=== PATIENT | female | born 1935 | race Caucasian/White ===

== ENCOUNTER 2019-02-09 16:12 | Inpatient (IN) | payer MEDICARE, OTHER ==
[~2019-02-09] VITALS: Ht 149.9 cm; Wt 56.7 kg
--- NOTE | 2019-02-09 16:45 | NUR ---
BIB SON C/O SOB STARTED 3:30AM, 02 SAT 94% ON RA. DX WITH PNEUMONIA LAST MONTH PER PT. PT AAOX3, VSS. DENIES CP, DIZZINESS, N/V, WEAKNESS @ THIS TIME. PT SEEN & EVAL'D BY DR. MARKS. PLACED ON SOFTWARE MANAGER, NSR & WILL CONT TO MONITOR.
[2019-02-09 16:56] LABS: BASOPHILS # (AUTO) 0.1 /CMM (0.0-0.2); BASOPHILS % (AUTO) 0.9 % (0.0-2.0); EOSINOPHILS % (AUTO) 5.3 % (0.0-6.0); HEMATOCRIT 34 % (33-45); HEMOGLOBIN 11.6 g/dL (11.5-14.8); LYMPHOCYTES # (AUTO) 2.2 /CMM (0.8-4.8); LYMPHOCYTES % (AUTO) 26.6 % (20.0-44.0); MEAN CORPUSCULAR HGB CONC 35 g/dl (31.0-36.0); MEAN CORPUSCULAR VOLUME 92 fL (82-100); MONOCYTES % (AUTO) 11.8 % (2.0-12.0); NEUTROPHILS # (AUTO) 4.5 /CMM (1.8-8.9); NEUTROPHILS % (AUTO) 55.4 % (43.0-81.0); PLATELET COUNT (AUTO) 152 /CMM (150-450); RED BLOOD CELL COUNT(AUTO) 3.65 MIL/uL (4.0-5.2); WHITE BLOOD COUNT (AUTO) 8.2 K/uL (4.3-11.0)
[2019-02-09 17:15] LABS: CALCIUM, SERUM 9.8 mg/dL (8.5-10.1); CARBON DIOXIDE 30 mmol/L (21-32); CHLORIDE 102 mmol/L (98-107); CREATININE 1.9 mg/dL (0.6-1.3); GLUCOSE 101 mg/dL (74-106); POTASSIUM 3.3 mmol/L (3.5-5.1); SODIUM SERUM 140 mmol/L (136-145); UREA NITROGEN, BLOOD 41 mg/dL (7-18)
[2019-02-09 17:28] LABS: ALANINE AMINOTRANSFERASE 15 U/L (12-78); ALBUMIN 3.7 g/dL (3.4-5.0); ALKALINE PHOSPHATASE 72 U/L (46-116); ASPARTATE AMINOTRANSFERASE 20 U/L (15-37); B-TYPE NATRIURETIC PEPTIDE 3480 PG/ML (0-125); BILIRUBIN,DIRECT 0.1 mg/dL (0.0-0.2); BILIRUBIN,TOTAL 0.4 mg/dL (0.2-1.0); TOTAL PROTEIN, SERUM 8.2 g/dL (6.4-8.2)
--- NOTE | 2019-02-09 18:15 | NUR ---
MOVE SHEET SUBMITTED TO ADMITTING AND CALLED FOR TELE BED
[2019-02-09] MEDS ORDERED: FUROSEMIDE 40 MG/4 ML VIAL ONE (18:27)
[2019-02-09] MEDS ORDERED: POTASSIUM CHLORIDE 20 MEQ TAB.PRT.SR PO ONE ×2 (18:27→18:30)
[2019-02-09] MEDS ORDERED: FUROSEMIDE 40 MG/4 ML VIAL IV ONE (18:30)
--- NOTE | 2019-02-09 18:37 | NUR ---
MEDICATED ORDERED, PT NGUYỄN WELL. DENIES CP, SOB, DIZZINESS, N/V, WEAKNESS @ THIS TIME. WILL CONT TO MONITOR.
--- NOTE | 2019-02-09 19:45 | NUR ---
TELE 313-2 GIVEN
--- NOTE | 2019-02-09 20:08 | NUR ---
REPORT GIVEN TO ALVAREZ DAVID FOR VIKTOR.
[2019-02-09 20:20] VITALS: BP 127/72
--- NOTE | 2019-02-09 20:20 | NUR ---
SOUND SYSTEM INSTALLERBALLAST CLEANING OPERATOR NOTES Received patient from ER, via rmaurisio accompanied by 2 ER staff. Admitted to Tele 312-2 due to Acute HF under the service of COLLECTION SYSTEMS FOREMAN Marie Steele. Assist to bed comfortably. Patient noted able to ambulate, with minimal SOB/CABEZAS noted. Attached to O2 @ 2LPM to maintain SpO2 >92%. Admission routine done. Patient's belongings inventory completed by the assigned MANAGER ENERGY. Med recon not done at ER. Initial skin assessment done, patient preferred to keep her house clothes on with the hospital gown provided. Patient refused to check her sacrum, per patient she has not skin issues at this time. Attached tele monitor as ordered, with NSR with occasional PVCs noted. Patient denies any discomfort/pain at this time. For urinalysis as ordered, instructed patient on the need to collect urine sample, patient verbalized understanding. Patient request for sandwich and juice, provided as permitted. Kept on bed clean, dry and comfortable. Call light within easy reach. On aspiration and fall precautions. Will continue to monitor accordingly.
[2019-02-09] MEDS: AZITHROMYCIN 250 MG TABLET PO SCH (23:00)
--- NOTE | 2019-02-09 23:10 | NUR ---
BLOCKING MACHINE OPERATOR SECOND NOTES RT AT BEDSIDE GIVING INSTRUCTIONS AND DEMONSTRATIONS TO PATIENT ON THE USE OF IS. PATIENT VERBALIZED UNDERSTANDING, REINFORCEMENT NEEDED FOR FULL BENEFITS OF THE USE OF IS.
--- NOTE | 2019-02-09 23:15 | NUR ---
CONTACT CENTER PROFESSIONAL NOTES URINE SAMPLE COLLECTED FOR URINALYSIS ORDERED, STORED ACCORDINGLY. NOTIFIED LAB, SPOKE WITH
[2019-02-10] VITALS: BP 120/68
[2019-02-10 00:53] VITALS: BP 127/72
[2019-02-10] MEDS ORDERED: ASPI-1169 PO (02:24)
[2019-02-10] MEDS ORDERED: MEMA5TAB42 PO (02:24)
[2019-02-10] MEDS ORDERED: PRAV40TA3 PO (02:24)
[2019-02-10] MEDS ORDERED: MEMA10TA PO (02:24)
[2019-02-10] MEDS ORDERED: CINA30TA6 PO (02:26)
[2019-02-10] MEDS ORDERED: LANS30CA56 PO (02:26)
[2019-02-10] MEDS ORDERED: AMLO10TA7 PO (02:28)
[2019-02-10] MEDS ORDERED: METO50TA16 PO (02:28)
[2019-02-10] MEDS ORDERED: QUET50TA PO (02:33)
[2019-02-10] MEDS ORDERED: ESCI5TAB PO (02:33)
[2019-02-10] MEDS ORDERED: LORA10CA PO (02:33)
[2019-02-10] MEDS ORDERED: MIRT15TA7 PO (02:33)
[2019-02-10] MEDS ORDERED: MECL-159 PO (02:33)
[2019-02-10] MEDS ORDERED: DONE10TA44 PO (02:33)
[2019-02-10] MEDS ORDERED: TOLT2CAP22 PO (02:33)
[2019-02-10] MEDS ORDERED: FURO40TA5 PO (02:33)
[2019-02-10 04:00] VITALS: BP 118/62
[2019-02-10 04:53] LABS: APPEARANCE,URINE Clear (CLEAR); BILIRUBIN,URINE Negative (NEGATIVE); BLOOD, URINE Negative Ery/uL (NEGATIVE); COLOR,URINE Yellow (YELLOW); KETONES,URINE Negative (NEGATIVE); LEUKOCYTE ESTERASE ,URINE Negative (NEGATIVE); NITRITE, URINE Negative (NEGATIVE); PH,URINE 5.5 (5.0-8.0); PROTEIN,URINE Negative (NEGATIVE); UGLUCOSE Negative (NEGATIVE); UROBILINOGEN,URINE 0.2 EU/dL (0.2)
--- NOTE | 2019-02-10 06:40 | NUR ---
VP ANALYSIS CLOSING NOTES Patient asleep, easily awaken. On tele monitor with NSR with PVCs noted. No complaints of chest pain, still on O2, saturating well, no SOB/respiratory distress noted at this time. All nursing needs attended, due meds given as ordered. Kept on bed clean, dry and comfortable. Call light within easy reach. On fall and aspiration precautions.
[2019-02-10 06:41] LABS: BASOPHILS # (AUTO) 0.1 /CMM (0.0-0.2); BASOPHILS % (AUTO) 0.7 % (0.0-2.0); EOSINOPHILS % (AUTO) 4.8 % (0.0-6.0); HEMATOCRIT 31 % (33-45); HEMOGLOBIN 10.6 g/dL (11.5-14.8); LYMPHOCYTES # (AUTO) 2.1 /CMM (0.8-4.8); LYMPHOCYTES % (AUTO) 27.5 % (20.0-44.0); MEAN CORPUSCULAR HGB CONC 34 g/dl (31.0-36.0); MEAN CORPUSCULAR VOLUME 92 fL (82-100); MONOCYTES # (AUTO) 0.7 /CMM (0.1-1.30); MONOCYTES % (AUTO) 9.2 % (2.0-12.0); NEUTROPHILS # (AUTO) 4.4 /CMM (1.8-8.9); NEUTROPHILS % (AUTO) 57.8 % (43.0-81.0); PLATELET COUNT (AUTO) 153 /CMM (150-450); RED BLOOD CELL COUNT(AUTO) 3.38 MIL/uL (4.0-5.2); WHITE BLOOD COUNT (AUTO) 7.6 K/uL (4.3-11.0)
[2019-02-10 07:07] LABS: ALANINE AMINOTRANSFERASE 14 U/L (12-78); ALBUMIN 3.1 g/dL (3.4-5.0); ALKALINE PHOSPHATASE 62 U/L (46-116); ASPARTATE AMINOTRANSFERASE 15 U/L (15-37); BILIRUBIN,TOTAL 0.4 mg/dL (0.2-1.0); CALCIUM, SERUM 8.9 mg/dL (8.5-10.1); CARBON DIOXIDE 31 mmol/L (21-32); CHLORIDE 105 mmol/L (98-107); GLUCOSE 115 mg/dL (74-106); MAGNESIUM 1.6 mg/dL (1.8-2.4); SODIUM SERUM 146 mmol/L (136-145); UREA NITROGEN, BLOOD 39 mg/dL (7-18)
[2019-02-10 07:13] LABS: CHOLESTEROL 172 mg/dL (<200); HDL CHOLESTEROL 38 mg/dL (40-60); LDL 89 mg/dL (0-99); THYROID STIMULATING HORMONE 0.191 uIU/mL (0.358-3.74); TRIGLYCERIDES 300 mg/dL (30-150)
--- NOTE | 2019-02-10 07:28 | NUR ---
RN OPENING NOTES PT WAS RECEIVED RESTING IN BED AT LOWEST AND LOCKED POSITION WITH SIDE RAILS UP X2, A/O X4 BUT FORGETFUL BREATHING EVEN AND UNLABORED ON 2L VIA NC, NO S/S OF ANY DISTRESS OR PAIN AT THIS TIME, IV IS PATENT AND INTACT, AMBULATORY WITH CANE PER NIGHT RN, SAFETY PRECAUTIONS IN PLACE, CALL LIGHT IN REACH, WILL MONITOR ACCORDINGLY
[2019-02-10 08:00] VITALS: BP 138/65
[2019-02-10] MEDS ORDERED: POTASSIUM CHLORIDE 20 MEQ TAB.PRT.SR PO ONE (08:00)
[2019-02-10] MEDS ORDERED: MAGNESIUM OXIDE 400 MG TABLET PO ONE (08:00)
[2019-02-10] MEDS: ENOXAPARIN SODIUM 30 MG/0.3 ML DISP.SYRIN SQ SCH (08:39)
[2019-02-10] MEDS ORDERED: POTASSIUM CHLORIDE 20 MEQ TAB.PRT.SR PO SCH (09:00)
[2019-02-10] MEDS ORDERED: FUROSEMIDE 40 MG/4 ML VIAL IV SCH (09:00)
[2019-02-10] MEDS: ASPIRIN 81 MG TAB.CHEW PO SCH (09:11)
[2019-02-10] MEDS: AMLODIPINE BESYLATE 10 MG TABLET PO SCH (09:12)
[2019-02-10] MEDS: IV NS 0.9% 1,000 ML IV PRN (09:34)
[2019-02-10 16:00] VITALS: BP 127/73
--- NOTE | 2019-02-10 18:20 | NUR ---
RN CLOSING NOTES PT RESTING IN BED AT LOWEST AND LOCKED POSITION WITH SIDE RAILS UP X2, A/O X4 BREATHING EVEN AND UNLABORED WITH NO COMPLAINTS OF PAIN OR DISTRESS NOTED, IV IS PATENT AND INTACT WITH IVF RUNNING, SAFETY PRECAUTIONS IN PLACE, CALL LIGHT IN REACH, ALL NEEDS ATTENDED TO, WILL ENDORSE TO NIGHT RN FOR VIKTOR
--- NOTE | 2019-02-10 19:58 | NUR ---
MS/RN RECEIVE PATIENT AWAKE, ALERT, COMFORTABLE, NO C/O PAIN, NO DISTRESS NOTED, FALL PRECAUTION, WILL MONITOR.
[2019-02-10 20:00] VITALS: BP 141/78
[2019-02-10] MEDS ORDERED: MECLIZINE HCL 25 MG TABLET PO PRN (22:30)
[2019-02-10] MEDS ORDERED: LORATADINE 10 MG TABLET PO PRN (23:00)
[2019-02-10] MEDS ORDERED: QUETIAPINE FUMARATE 25 MG TABLET PO ONE (23:30)
[2019-02-10] MEDS: AZITHROMYCIN 250 MG TABLET PO SCH (23:42)
--- NOTE | 2019-02-11 | NUR ---
MS/RN PATIENT IS SLEEPING AT THIS TIME, APPEAR COMFORTABLE, NO SIGNS OF DISTRESS NOTED, CALL LIGHT IN REACH, WILL CONTINUE TO MONITOR.
--- NOTE | 2019-02-11 06:19 | NUR ---
MS/RN PATIENT IS STILL SLEEPING, APPEAR COMFORTABLE, NO DISTRESS NOT ALL NEEDS ATTENFRF AT THIS TIME, WILL CONTINUE TO TCO6SHS.
[2019-02-11 06:53] LABS: BASOPHILS # (AUTO) 0.1 /CMM (0.0-0.2); BASOPHILS % (AUTO) 0.8 % (0.0-2.0); EOSINOPHILS % (AUTO) 4.9 % (0.0-6.0); HEMATOCRIT 31 % (33-45); HEMOGLOBIN 10.8 g/dL (11.5-14.8); LYMPHOCYTES # (AUTO) 2.3 /CMM (0.8-4.8); LYMPHOCYTES % (AUTO) 33.1 % (20.0-44.0); MEAN CORPUSCULAR HGB CONC 34 g/dl (31.0-36.0); MEAN CORPUSCULAR VOLUME 92 fL (82-100); MONOCYTES # (AUTO) 0.6 /CMM (0.1-1.30); MONOCYTES % (AUTO) 9.2 % (2.0-12.0); NEUTROPHILS # (AUTO) 3.6 /CMM (1.8-8.9); PLATELET COUNT (AUTO) 152 /CMM (150-450); RED BLOOD CELL COUNT(AUTO) 3.41 MIL/uL (4.0-5.2); WHITE BLOOD COUNT (AUTO) 6.9 K/uL (4.3-11.0)
[2019-02-11 06:57] LABS: CARBON DIOXIDE 29 mmol/L (21-32); CHLORIDE 107 mmol/L (98-107); CREATININE 1.6 mg/dL (0.6-1.3); GLUCOSE 121 mg/dL (74-106); MAGNESIUM 1.7 mg/dL (1.8-2.4); POTASSIUM 3.3 mmol/L (3.5-5.1); SODIUM SERUM 143 mmol/L (136-145); UREA NITROGEN, BLOOD 33 mg/dL (7-18)
--- NOTE | 2019-02-11 07:10 | NUR ---
MS RN NOTES PATIENT IN BED EYES CLOSED EASY TO AROUSE, NO ACUTE DISTRESS NOTED. BREATHING UNLABORED. NO SOB NOTED. SAFETY MEASURES IN PLACE. CALL LIGHT WITHIN REACH. WILL CONTINUE TO MONITOR ACCORDINGLY.
[2019-02-11] MEDS ORDERED: Medication Not On Formulary EA (Lansoprazole 30 MG) PO SCH (07:30)
[2019-02-11] MEDS: PANTOPRAZOLE 40 MG TABLET.DR PO SCH (07:56)
[2019-02-11 08:00] VITALS: BP 132/78
[2019-02-11] MEDS ORDERED: POTASSIUM CHLORIDE 20 MEQ TAB.PRT.SR PO ONE (08:00)
[2019-02-11] MEDS ORDERED: MAGNESIUM OXIDE 400 MG TABLET PO ONE (08:00)
--- NOTE | 2019-02-11 08:14 | NUR ---
PROJECT PRODUCTION ENGINEER NOTES PATIENT SEEN AND EVALUATED BY DR ALEXANDRE WITH NEW ORDERS MADE. CLARIFIED TROPONIN ORDERS, AWARE OF RESULT THIS AM AND WANTS NEXT TROPONIN DRAW AT 1200PM TODAY SIX HOURS INTERVAL.
[2019-02-11] MEDS: MEMANTINE HCL 5 MG TABLET PO SCH (08:48)
[2019-02-11] MEDS: ASPIRIN 81 MG TAB.CHEW PO SCH (08:49)
[2019-02-11] MEDS: ESCITALOPRAM OXALATE (10 MG) 10 MG TABLET PO SCH (08:49)
[2019-02-11] MEDS: QUETIAPINE FUMARATE 100 MG TABLET PO SCH ×2 (08:49→17:28)
[2019-02-11] MEDS: AMLODIPINE BESYLATE 10 MG TABLET PO SCH (08:50)
[2019-02-11] MEDS: ENOXAPARIN SODIUM 30 MG/0.3 ML DISP.SYRIN SQ SCH (08:52)
--- NOTE | 2019-02-11 08:55 | NUR ---
FEATHER STITCHER NOTES EKG DONE . RESULT SEEN BY DR WILSON, NO NEW ORDER MADE AT THIS TIME.
[2019-02-11] MEDS ORDERED: Medication Not On Formulary EA (Escitalopram Oxalate (Lexapro) 5 MG) PO SCH (09:00)
[2019-02-11] MEDS ORDERED: Medication Not On Formulary EA (Quetiapine Fumarate (Seroquel) 50 MG) PO SCH (09:00)
[2019-02-11 12:00] VITALS: BP 138/79
[2019-02-11] MEDS: GUAIFENESIN/D-METHORPHAN HB 5 ML UDC PO PRN (13:42)
[2019-02-11] MEDS: IV NS 0.9% 1,000 ML IV PRN (13:48)
[2019-02-11 16:03] VITALS: BP 149/84
[2019-02-11] MEDS ORDERED: SIMVASTATIN 20 MG TABLET PO SCH (18:00)
[2019-02-11] MEDS ORDERED: Medication Not On Formulary EA (Pravastatin Sodium 1 TAB) PO SCH (18:00)
--- NOTE | 2019-02-11 19:00 | NUR ---
BOXCAR WEIGHER NOTES PATIENT IN BED ALERT ORIENTED X 3, NO ACUTE DISTRESS NOTED. BREATHING UNLABORED. NO SOB NOTED. NEEDS ATTENDED AND ANTICIPATED. KEPT CLEAN DRY AND COMFORTABLE. SAFETY MEASURES IN PLACE. CALL LIGHT WITHIN REACH. WILL ENDORSE TO NIGHT NURSE FOR CONTINUITY OF CARE.
--- NOTE | 2019-02-11 19:29 | NUR ---
DIRECTOR SPEECH LANGUAGE OPENING NOTES PATIENT RECEIVED IN BED A/O x4, ABLE TO MAKE NEEDS KNOWN. AMBULATORY WITH ASSIST OF WALKER. NO SIGNS OF ACUTE DISTRESS, NO SOB, AND NO COMPLAINTS OF PAIN. IV LOCATED ON L AC #20 RUNNING NS @ 70 ML/ HR. PATIENT ALSO HAS 2L OF O2 VIA NC. HEAD OF BED IS IN HIGH FOWLERS POSITION. SAFETY PRECAUTIONS IN PLACE WITH BED IN LOWEST POSITION, BREAKS ON, BED RAILS UP x2, AND CALL LIGHT WITHIN REACH. WILL CONTINUE TO MONITOR.
[2019-02-11 20:00] VITALS: BP 139/66
[2019-02-11 21:03] VITALS: BP 139/66
[2019-02-11] MEDS ORDERED: MIRTAZAPINE 15 MG TABLET PO SCH (22:00)
[2019-02-11] MEDS: AZITHROMYCIN 250 MG TABLET PO SCH (22:38)
[2019-02-12] VITALS: BP 127/76
[2019-02-12 04:00] VITALS: BP 139/71
--- NOTE | 2019-02-12 06:15 | NUR ---
REFRIGERATION SUPERVISOR CLOSING NOTES Patient is currently resting in bed A/O x4. No signs of acute distress, no SOB, and no current complaints of pain. Patient is able to make needs known and cooperative. Ambulatory with walker, standby assistance needed. 2L O2 via NC, head of bed maintained in semi fowlers position. IV patent and intact on L AC #20 running NS @ 70 mL/ hr. Safety precaution in place with bed in lowest position, bed rails up X2, breaks on. All needs were attended to and patient was kept clean and dry. Will endorse to oncoming shift about VIKTOR.
[2019-02-12 07:16] LABS: BASOPHILS # (AUTO) 0.1 /CMM (0.0-0.2); BASOPHILS % (AUTO) 0.9 % (0.0-2.0); EOSINOPHILS % (AUTO) 5.8 % (0.0-6.0); HEMATOCRIT 31 % (33-45); HEMOGLOBIN 10.5 g/dL (11.5-14.8); LYMPHOCYTES # (AUTO) 1.8 /CMM (0.8-4.8); LYMPHOCYTES % (AUTO) 26.8 % (20.0-44.0); MEAN CORPUSCULAR HGB CONC 34 g/dl (31.0-36.0); MEAN CORPUSCULAR VOLUME 93 fL (82-100); MONOCYTES # (AUTO) 0.5 /CMM (0.1-1.30); MONOCYTES % (AUTO) 7.9 % (2.0-12.0); NEUTROPHILS % (AUTO) 58.6 % (43.0-81.0); PLATELET COUNT (AUTO) 147 /CMM (150-450); RED BLOOD CELL COUNT(AUTO) 3.35 MIL/uL (4.0-5.2); WHITE BLOOD COUNT (AUTO) 6.8 K/uL (4.3-11.0)
[2019-02-12 07:36] LABS: CALCIUM, SERUM 9.1 mg/dL (8.5-10.1); CARBON DIOXIDE 27 mmol/L (21-32); CHLORIDE 107 mmol/L (98-107); CREATININE 1.4 mg/dL (0.6-1.3); GLUCOSE 115 mg/dL (74-106); MAGNESIUM 1.7 mg/dL (1.8-2.4); POTASSIUM 3.7 mmol/L (3.5-5.1); SODIUM SERUM 145 mmol/L (136-145); UREA NITROGEN, BLOOD 22 mg/dL (7-18)
[2019-02-12 08:00] VITALS: BP 125/78
[2019-02-12] MEDS: GUAIFENESIN/D-METHORPHAN HB 5 ML UDC PO PRN (08:33)
[2019-02-12] MEDS: MEMANTINE HCL 5 MG TABLET PO SCH (08:33)
[2019-02-12 08:34] VITALS: BP 125/78
[2019-02-12] MEDS: QUETIAPINE FUMARATE 100 MG TABLET PO SCH (08:34)
[2019-02-12] MEDS: ESCITALOPRAM OXALATE (10 MG) 10 MG TABLET PO SCH (08:34)
[2019-02-12] MEDS: AMLODIPINE BESYLATE 10 MG TABLET PO SCH (08:34)
[2019-02-12] MEDS: ASPIRIN 81 MG TAB.CHEW PO SCH (08:34)
[2019-02-12] MEDS: AZITHROMYCIN 250 MG TABLET PO SCH (08:35)
[2019-02-12] MEDS: PANTOPRAZOLE 40 MG TABLET.DR PO SCH (08:35)
[2019-02-12] MEDS: ENOXAPARIN SODIUM 30 MG/0.3 ML DISP.SYRIN SQ SCH (08:39)
[2019-02-12] MEDS ORDERED: CINACALCET HCL 30 MG TABLET PO SCH (09:00)
[2019-02-12] MEDS ORDERED: AZIT500T2 PO (11:59)
[2019-02-12] MEDS ORDERED: ALBU18HF2 INH (11:59)
[2019-02-12] MEDS: Magnesium 1GM/D5W 100ML PREMIX 100 ML IV SCH ×2 (12:00→13:00)
--- NOTE | 2019-02-12 12:30 | NUR ---
patient cleared for discharge by MD. Patient awake alert and oriented x4 . Ambulatory with walker. Patient requested walker prior discharge. Walker provided.Teaching and discharge instructions including new prescribed meds given to patient and her daughter; both verbalized understanding . Daughter requested to change preferred pharmacy to [place] [facility]. Changes made and prescription sent to the pharmacy ( [phone], [place]). All needs attended. IV line removed. ID wrist band removed . Patient sighed d/c papers and valuable form . All belongings with the patient including home meds. Patient safely transferred to [place] car via wheelchair accompanied by PUBLIC POLICY ANALYST and daughter.
== END 2019-02-12 12:30 | disposition home or self-care (01) | DRG 682 ==
LOC: ER 16:17 → TELE 19:47 → MED 02-10 09:17 → TELE 02-11 08:33 → ICU 02-11 16:07 → MED 02-11 16:09 → TELE 02-11 20:37 → MED 02-12 11:10
PROVIDERS: ADMIT Registered Nurse; ATTEND Nurse Practitioner Acute Care
DX: N17.0 Acute kidney failure with tubular necrosis (principal); I21.A1 Myocardial infarction type 2; E44.1 Mild protein-calorie malnutrition; I13.0 Hypertensive heart and chronic kidney disease with heart failure and stage 1 through stage 4 chronic kidney disease, or unspecified chronic kidney disease; J20.9 Acute bronchitis, unspecified; E87.6 Hypokalemia; E83.42 Hypomagnesemia; N18.9 Chronic kidney disease, unspecified; M19.90 Unspecified osteoarthritis, unspecified site; F03.90 Unspecified dementia, unspecified severity, without behavioral disturbance, psychotic disturbance, mood disturbance, and anxiety; E05.90 Thyrotoxicosis, unspecified without thyrotoxic crisis or storm; E88.09 Other disorders of plasma-protein metabolism, not elsewhere classified; Z68.25 Body mass index [BMI] 25.0-25.9, adult; E78.5 Hyperlipidemia, unspecified; I45.10 Unspecified right bundle-branch block; D64.9 Anemia, unspecified; I50.9 Heart failure, unspecified; R73.03 Prediabetes; Z99.81 Dependence on supplemental oxygen
CPT/HCPCS: 36415; 71045-TC; 80048-TC; 80053-TC; 80061-TC; 80076-TC; 81000-TC; 83735-TC; 83880; 84100-TC; 84439-TC; 84443-TC; 84484-TC; 85025-TC; 85730-TC; 87081-TC; 93307-TC; 94799-TC; 97116-TC; 97530-TC; G0378; J1650; J1940; J7030

== ENCOUNTER 2019-04-06 14:57 | Inpatient (IN) | payer OTHER ==
[~2019-04-06] VITALS: Ht 149.9 cm; Wt 69.9 kg
[~2019-04-06 14:57] MED LIST: ALBU18HF2 INH; AMLO10TA7 PO; ASPI-1169 PO; AZIT500T2 PO; CINA30TA6 PO; DONE10TA44 PO; ESCI5TAB PO; FURO40TA5 PO; LANS30CA56 PO; LORA10CA PO; MECL-159 PO; MEMA5TAB42 PO; METO50TA16 PO; MIRT15TA7 PO; PRAV40TA3 PO; QUET50TA PO; TOLT2CAP22 PO
--- NOTE | 2019-04-06 15:00 | NUR ---
[id number] FRM HOME C/O MIDSTERNAL CHEST PAIN, SOB S/P FEELING DIZZ Y AND FALLING AT 1600, pt awake, alert, -sob, nad noted, vss, pending md smith
[2019-04-06] MEDS ORDERED: MORPHINE SULFATE INJ 2 MG/ML DISP.SYRIN ONE (15:28)
[2019-04-06] MEDS ORDERED: ONDANSETRON HCL/PF 4 MG/2 ML VIAL ONE (15:28)
[2019-04-06] MEDS ORDERED: ONDANSETRON HCL/PF 4 MG/2 ML VIAL IVP ONE (15:30)
[2019-04-06] MEDS ORDERED: MORPHINE SULFATE INJ 2 MG/ML DISP.SYRIN IV ONE (15:30)
[2019-04-06 15:36] LABS: BASOPHILS # (AUTO) 0.1 /CMM (0.0-0.2); HEMATOCRIT 30 % (33-45); HEMOGLOBIN 9.8 g/dL (11.5-14.8); LYMPHOCYTES # (AUTO) 1.1 /CMM (0.8-4.8); LYMPHOCYTES % (AUTO) 12.3 % (20.0-44.0); MEAN CORPUSCULAR HGB CONC 33 g/dl (31.0-36.0); MEAN CORPUSCULAR VOLUME 91 fL (82-100); MONOCYTES # (AUTO) 0.6 /CMM (0.1-1.30); MONOCYTES % (AUTO) 6.6 % (2.0-12.0); NEUTROPHILS # (AUTO) 6.8 /CMM (1.8-8.9); NEUTROPHILS % (AUTO) 79.1 % (43.0-81.0); PLATELET COUNT (AUTO) 133 /CMM (150-450); RED BLOOD CELL COUNT(AUTO) 3.22 MIL/uL (4.0-5.2); WHITE BLOOD COUNT (AUTO) 8.6 K/uL (4.3-11.0)
[2019-04-06 15:44] LABS: CALCIUM, SERUM 10.8 mg/dL (8.5-10.1); CARBON DIOXIDE 26 mmol/L (21-32); CHLORIDE 106 mmol/L (98-107); CREATININE 1.6 mg/dL (0.6-1.3); GLUCOSE 153 mg/dL (74-106); POTASSIUM 3.7 mmol/L (3.5-5.1); SODIUM SERUM 143 mmol/L (136-145); UREA NITROGEN, BLOOD 20 mg/dL (7-18)
[2019-04-06 15:57] LABS: ALANINE AMINOTRANSFERASE 11 U/L (12-78); ALBUMIN 3.9 g/dL (3.4-5.0); ALKALINE PHOSPHATASE 72 U/L (46-116); ASPARTATE AMINOTRANSFERASE 29 U/L (15-37); B-TYPE NATRIURETIC PEPTIDE 6459 PG/ML (0-125); BILIRUBIN,DIRECT 0.2 mg/dL (0.0-0.2); BILIRUBIN,TOTAL 0.8 mg/dL (0.2-1.0); TOTAL PROTEIN, SERUM 8.4 g/dL (6.4-8.2)
--- NOTE | 2019-04-06 17:02 | NUR ---
CALLED NURSING SUP FOR TELE BED.
--- NOTE | 2019-04-06 17:08 | NUR ---
Marisol calero in [facility] - 04/06/19 at 1709 by JOSE NURSING SUP GAVE [facility] 115-1.
--- NOTE | 2019-04-06 17:09 | NUR ---
NURSING SUP GAVE TELE BED 315-1.
[2019-04-06] MEDS ORDERED: IPRA3AMP23 IH (17:31)
[2019-04-06] MEDS ORDERED: ALBU18HF2 IH (17:31)
[2019-04-06] MEDS ORDERED: DOXE25CA3 PO (17:31)
--- NOTE | 2019-04-06 17:57 | NUR ---
pt has "scan" for insurance per admitting dept. they will call for auth
[2019-04-06] MEDS ORDERED: ASPIRIN 81 MG TAB.CHEW PO ONE (18:00)
[2019-04-06 18:19] LABS: APPEARANCE,URINE Clear (CLEAR); BILIRUBIN,URINE SMALL (NEGATIVE); BLOOD, URINE Moderate Ery/uL (NEGATIVE); COLOR,URINE Yellow (YELLOW); KETONES,URINE Negative (NEGATIVE); LEUKOCYTE ESTERASE ,URINE Negative (NEGATIVE); NITRITE, URINE Negative (NEGATIVE); PH,URINE 5.5 (5.0-8.0); PROTEIN,URINE >=300 mg/dl (NEGATIVE); UGLUCOSE Negative (NEGATIVE); UROBILINOGEN,URINE 0.2 EU/dL (0.2)
[2019-04-06 18:30] LABS: BACTERIA,URINE None seen /HPF (None Seen); SQUAMOUS EPITHELIAL CELL,UR Few /HPF (None Seen); WBC,URINE 0-2 /HPF (0-3)
--- NOTE | 2019-04-06 18:41 | NUR ---
per admitting: time of contact [phone]
--- NOTE | 2019-04-06 18:50 | NUR ---
LEOLA DIAZ FROM [facility] FAX [phone]. JOE DIRECT LINE [phone]. [facility]E CALLED TO GIVE AUTHORIZATION FOR ADMISSION UNDER OBS. WANTS US TO FAX CLINICAL INFORMATION AND FACESHEET.
[2019-04-06] MEDS ORDERED: ASPIRIN 81 MG TAB.CHEW ONE (18:54)
[2019-04-06] MEDS ORDERED: HYDROCODONE/APAP 5/325MG 1 EACH TABLET PO PRN (19:00)
[2019-04-06] MEDS ORDERED: ALBUTEROL SULFATE INH 18 GM HFA.AER.AD IH PRN (19:00)
[2019-04-06] MEDS ORDERED: MAG HYDROX/AL HYDROX/SIMETH 30 ML UDC PO PRN (19:00)
[2019-04-06] MEDS ORDERED: MECLIZINE HCL 25 MG TABLET PO PRN (19:00)
[2019-04-06] MEDS ORDERED: ONDANSETRON HCL/PF 4 MG/2 ML VIAL IVP PRN (19:00)
[2019-04-06] MEDS ORDERED: MAGNESIUM HYDROXIDE 30 ML UDC PO PRN (19:00)
[2019-04-06] MEDS ORDERED: Z GUARD REMEDY 2 OZ OINT TP PRN (19:00)
[2019-04-06] MEDS ORDERED: IPRATROPIUM NEB FS 0.5 MG/2.5 ML AMPUL.NEB NEB PRN (20:00)
[2019-04-06 20:10] VITALS: BP 149/68
[2019-04-06 20:24] VITALS: BP 149/68
[2019-04-06] MEDS ORDERED: LORATADINE 10 MG TABLET PO PRN (20:30)
--- NOTE | 2019-04-06 20:31 | NUR ---
REPORT GIVEN TO ELSI PINO FOR VIKTOR PT TRANSPORTED TO 3RD FLOOR VIA ACLS PROTOCOL
--- NOTE | 2019-04-06 20:40 | NUR ---
ADMISSION 84 y/o female admitted for Chest pain. Patient is A/O x3 appears anxious and forgetful. Oxygen sat 89% on 2LPM, titrate up to 93% with Oxygen sat 93%, denies chest pain. Skin intact, orientation to room, unit, staff. Fall, Aspiration precaution maintained.
[2019-04-06] MEDS: ATORVASTATIN 10 MG TABLET PO SCH (22:26)
[2019-04-06] MEDS: QUETIAPINE FUMARATE 25 MG TABLET PO SCH (22:26)
[2019-04-06] MEDS: DONEPEZIL 5 MG TABLET PO SCH (22:27)
[2019-04-06] MEDS: MIRTAZAPINE 15 MG TABLET PO SCH (22:27)
[2019-04-07] VITALS (22 sets, daily range): BP systolic 123–160; BP diastolic 29–96
[2019-04-07] MEDS ORDERED: ALBUTEROL FS 2.5 MG/3 ML VIAL.NEB NEB PRN (01:30)
[2019-04-07 03:46] LABS: BASOPHILS % (AUTO) 0.7 % (0.0-2.0); EOSINOPHILS % (AUTO) 2.4 % (0.0-6.0); HEMATOCRIT 27 % (33-45); HEMOGLOBIN 8.9 g/dL (11.5-14.8); LYMPHOCYTES # (AUTO) 1.2 /CMM (0.8-4.8); MEAN CORPUSCULAR HGB CONC 33 g/dl (31.0-36.0); MEAN CORPUSCULAR VOLUME 92 fL (82-100); MONOCYTES # (AUTO) 0.6 /CMM (0.1-1.30); MONOCYTES % (AUTO) 9.7 % (2.0-12.0); NEUTROPHILS # (AUTO) 4.5 /CMM (1.8-8.9); NEUTROPHILS % (AUTO) 69.2 % (43.0-81.0); PLATELET COUNT (AUTO) 111 /CMM (150-450); RED BLOOD CELL COUNT(AUTO) 2.94 MIL/uL (4.0-5.2); WHITE BLOOD COUNT (AUTO) 6.5 K/uL (4.3-11.0)
[2019-04-07 03:57] LABS: CHOLESTEROL 147 mg/dL (<200); HDL CHOLESTEROL 50 mg/dL (40-60); LDL 81 mg/dL (0-99); TRIGLYCERIDES 97 mg/dL (30-150)
[2019-04-07 04:40] LABS: CARBON DIOXIDE 28 mmol/L (21-32); CHLORIDE 108 mmol/L (98-107); CREATININE 1.7 mg/dL (0.6-1.3); GLUCOSE 122 mg/dL (74-106); MAGNESIUM 1.9 mg/dL (1.8-2.4); PHOSPHORUS 4.5 mg/dL (2.5-4.9); POTASSIUM 3.7 mmol/L (3.5-5.1); SODIUM SERUM 143 mmol/L (136-145); UREA NITROGEN, BLOOD 21 mg/dL (7-18)
--- NOTE | 2019-04-07 06:27 | NUR ---
END OF SHIFT REPORT Patient in bed., A/O 2 Forgetful. Sinus rhythm in the Tele monitor. Remains on supplemental Oxygen at 3LPM via NC tolerating well. Trop slowly trends, no c/o chest pain, denies nausea no vomiting. Plan for Cardio consult. Fall, Aspiration precaution maintained.
--- NOTE | 2019-04-07 07:15 | NUR ---
CLINICAL WRITER NOTES PATIENT IN BED EYES CLOSED EASY TO AROUSE, RESPOND TO VERBAL AND TACTILE STIMULI. ALERT ORIENTED X 2. NO ACUTE DISTRESS NOTED, BREATHING UNLABORED. ON 3LPM VIA NC PATIENT TOLERATING WELL. ON INSURANCE HEALTHCARE CONSULTANT SINUS RHYTHM. SAFETY MEASURES IN PLACE. CALL LIGHT WITHIN REACH. WILL CONTINUE TO MONITOR ACCORDINGLY.
[2019-04-07] MEDS: PANTOPRAZOLE 40 MG TABLET.DR PO SCH (07:54)
[2019-04-07 08:11] LABS: IRON, SERUM 27 ug/dl (50-175); TOTAL IRON BINDING CAPACITY 289 ug/dl (250-450)
[2019-04-07 08:43] LABS: FERRITIN 107 ng/mL (8-388)
[2019-04-07] MEDS: ENOXAPARIN SODIUM 30 MG/0.3 ML DISP.SYRIN SQ SCH (09:05)
[2019-04-07] MEDS: ESCITALOPRAM OXALATE (10 MG) 10 MG TABLET PO SCH (09:06)
[2019-04-07] MEDS: QUETIAPINE FUMARATE 25 MG TABLET PO SCH ×2 (09:06→16:09)
[2019-04-07] MEDS: FUROSEMIDE 40 MG TABLET PO SCH (09:06)
[2019-04-07] MEDS: ASPIRIN 81 MG TAB.CHEW PO SCH (09:06)
[2019-04-07] MEDS: MEMANTINE HCL 5 MG TABLET PO SCH (09:07)
[2019-04-07] MEDS: METOPROLOL TARTRATE 50 MG TABLET PO SCH ×3 (09:07→16:33)
[2019-04-07] MEDS: AMLODIPINE BESYLATE 10 MG TABLET PO SCH (09:07)
[2019-04-07] MEDS: CINACALCET HCL 30 MG TABLET PO SCH (09:07)
[2019-04-07] MEDS: TOLTERODINE 2 MG CAP.SR PO SCH (09:09)
--- NOTE | 2019-04-07 11:30 | NUR ---
PLATFORM MATERIAL HANDLER MANAGER NOTES PATIENT MJ DN EVALUATED BY LINDSAY DIEHL GRAINING OPERATOR WITH NEW ORDERS MADE FOR STAT ABG AND CHEST XRAY, ORDER CLARIFIED AND READ BACK TO [facility]STOR MONTOYA, NOTED AND CARRIED OUT.
[2019-04-07 12:09] LABS: ABG BASE EXCESS -3.1 mmol/L; ABG OXYGEN SATURATION 93.8 % (92.0-98.5); ABG PCO2 60.2 mmHg (35.0-45.0); ABG PH 7.237 (7.350-7.450); ABG PO2 79.9 mmHg (75.0-100.0); AaDO2 77.8 mmHg; COHb 0.8 % (0.5-1.5); MetHb 0.6 % (0.0-1.5); O2Hb 92.5 % (94.0-97.0); SITE, ABG Right Radial; VENT MODE, BG NASAL CANNULA
--- NOTE | 2019-04-07 12:22 | NUR ---
MS RN NOTES ABG RESULTED PAGED TRAVEL TICKETING REVIEWER LINDSAY DIEHL.
--- NOTE | 2019-04-07 12:42 | NUR ---
BALL WARPER TENDER NOTES SPOKE WITH NESTOR DIEHL RELAYED ABG RESULT , WITH ORDER TO TRANSFER TO ICU ,ORDER CLARIFIED AND READ BACK TO [facility] MONTOYA, NOTED AND CARRIED OUT.
--- NOTE | 2019-04-07 12:55 | NUR ---
SECTION PLOTTER OPERATOR NOTES PATIENT TRANSPORTED TO ICU ROOM 256 VIA ACLS. PATIENT ALERT ORIENTED X 2. ALL BELONGINGS TRANSFER WITH THE PATIENT. REPORT GIVEN TO SOFIYA PINO AT BEDSIDE.
--- NOTE | 2019-04-07 13:24 | NUR ---
RN NOTE 1300: Received patient from [facility] for SOB, Hypercarbic RF. Placed on Bipap, awaiting Pulmo consult, with order to do ABG 2 hours after Bipap. VSS, SR 80's. Lethargic. Placed Marcelino cath for noted wet and incontinent, on critical and needed strict I&O.
[2019-04-07] MEDS: ALBUTEROL FS 2.5 MG/3 ML VIAL.NEB NEB SCH ×2 (13:30→20:23)
[2019-04-07] MEDS: IPRATROPIUM NEB FS 0.5 MG/2.5 ML AMPUL.NEB NEB SCH ×2 (13:30→20:23)
[2019-04-07 15:02] LABS: ABG OXYGEN SATURATION 90.8 % (92.0-98.5); ABG PCO2 49.4 mmHg (35.0-45.0); ABG PH 7.311 (7.350-7.450); ABG PO2 62.3 mmHg (75.0-100.0); AaDO2 93.6 mmHg; COHb 1.4 % (0.5-1.5); MetHb 1.4 % (0.0-1.5); O2Hb 88.3 % (94.0-97.0); SITE, ABG Right Radial; VENT MODE, BG 15/5
[2019-04-07] MEDS: ACETAMINOPHEN 325 MG TABLET PO PRN (16:33)
--- NOTE | 2019-04-07 17:43 | NUR ---
Patient has is alert with episode of forgetfulness and hashx of dementia. She resides locally with her son. She was ambulating with a cane and walker as needed prior to admission. Has hx of CHF and on home o2. She is semi-independent with adl's and has good family support. No homehealth reported. Available DME: cane, walker, shower chair and O2. Pcxp is Dr. Murillo. Patient is currently in ICU on BIPAP support. Case is available for dc planning needs coordination. Addendum: 04/07/19 at 6054 by MATEUSZ SCOTT RN Amended: Links added.
[2019-04-07] MEDS: ATORVASTATIN 10 MG TABLET PO SCH (18:02)
[2019-04-07] MEDS: DOXEPIN HCL (25 MG) 25 MG CAPSULE PO SCH (18:02)
--- NOTE | 2019-04-07 19:15 | NUR ---
CENTRAL OFFICE EQUIPMENT INSTALLER RCD PT W/DX RESP DIST; PT IS ALERT ABLE TO ANSWER YES/NO QUESTIONS. BUE WEAKNESS NOTED. NSR ON MONITOR. RUTLEDGE DRAINING SMALL AMOUNT OF YELLOW URINE. SKIN INTACT. RAC 20 G INTACT AND R WRIST 20 G INTACT. PT DENIES PAIN AT THIS TIME. Addendum: 04/07/19 at 2000 by NARESH WOODS RN PT ON BIPAP RATE 14 15/5 30%; TOLERATING WELL.
--- NOTE | 2019-04-07 20:58 | NUR ---
Patient is alert with episode of forgetfulness with hx of dementia.She resides locally with her son. She was ambulating with a cane and walker prior to admission. Has hx of CHF and on home o2. She is semi-independent with adl's and has good family support. No homehealth reported. Available DME: cane, walker, shower chair and O2. Pcp is Dr. Murillo. Patient is currently in ICU on BIPAP support. helpdesk manager is available for dc planning needs coordination. Addendum: 04/07/19 at 2100 by MATEUSZ SCOTT RN Amended: Links added.
[2019-04-07] MEDS: MIRTAZAPINE 15 MG TABLET PO SCH (21:06)
[2019-04-07] MEDS: DONEPEZIL 5 MG TABLET PO SCH (21:06)
--- NOTE | 2019-04-07 21:06 | NUR ---
HOLLOW WARE MAKER NON ADMIN MEDS AT THIS TIME PT IS AWAKE BUT LETHARGIC. WILL CONTINUE TO MONITOR. REMAINS ON BIPAP.
[2019-04-08] VITALS (24 sets, daily range): BP systolic 126–154; BP diastolic 52–89
--- NOTE | 2019-04-08 00:49 | NUR ---
PROCESS MANUFACTURING ENGINEER PT WOKE UP CONFUSED; REMOVED BIPAP AND O2 SENSOR. REORIENTED PT. REQUIRES REINFORCEMENT.
--- NOTE | 2019-04-08 04:10 | NUR ---
DRAPERY MAKER PT DECLINED BLOOD DRAW; GIVES NO REASON WHY SHE IS DECLINING STATES I DON'T WANT IT. BIPAP REMOVED AND PLACED ON O2 3L VIA NC.; O2 SAT 100% CONTINUE TO MONITOR.
--- NOTE | 2019-04-08 07:14 | NUR ---
RAILROAD SWITCHMAN PT REMAINED ON O2 3L NC; TOLERATING WELL. CONTINUE TO MONITOR. STILL DID NOT AGREE TO MORNING LAB DRAW.
[2019-04-08] MEDS: ALBUTEROL FS 2.5 MG/3 ML VIAL.NEB NEB SCH ×4 (07:34→19:32)
[2019-04-08] MEDS: IPRATROPIUM NEB FS 0.5 MG/2.5 ML AMPUL.NEB NEB SCH ×4 (07:34→19:33)
[2019-04-08] MEDS: METOPROLOL TARTRATE 50 MG TABLET PO SCH ×2 (08:08→17:07)
[2019-04-08] MEDS: MEMANTINE HCL 5 MG TABLET PO SCH (08:08)
[2019-04-08] MEDS: ESCITALOPRAM OXALATE (10 MG) 10 MG TABLET PO SCH (08:08)
[2019-04-08] MEDS: AMLODIPINE BESYLATE 10 MG TABLET PO SCH (08:08)
[2019-04-08] MEDS: CINACALCET HCL 30 MG TABLET PO SCH (08:08)
[2019-04-08] MEDS: PANTOPRAZOLE 40 MG TABLET.DR PO SCH (08:09)
[2019-04-08] MEDS: ASPIRIN 81 MG TAB.CHEW PO SCH (08:09)
[2019-04-08] MEDS: TOLTERODINE 2 MG CAP.SR PO SCH (08:09)
[2019-04-08] MEDS: FUROSEMIDE 40 MG TABLET PO SCH (08:09)
[2019-04-08] MEDS: QUETIAPINE FUMARATE 25 MG TABLET PO SCH ×2 (08:09→17:00)
[2019-04-08 08:30] LABS: ABG BASE EXCESS 0.9 mmol/L; ABG OXYGEN SATURATION 86.8 % (92.0-98.5); ABG PCO2 64.4 mmHg (35.0-45.0); ABG PH 7.268 (7.350-7.450); AaDO2 93.8 mmHg; COHb 0.3 % (0.5-1.5); MetHb 0.6 % (0.0-1.5); SITE, ABG Right Radial; VENT MODE, BG NASAL CANNULA
[2019-04-08] MEDS: ENOXAPARIN SODIUM 30 MG/0.3 ML DISP.SYRIN SQ SCH (08:38)
[2019-04-08] MEDS: methylPREDNISolone SOD SUCC 40 MG/ML VIAL IV SCH ×3 (09:05→17:07)
--- NOTE | 2019-04-08 09:15 | NUR ---
RN NOTE 0730: Received patient ekta, on 3LPM of O2 via NC, 97%. Noted with stridor/wheezing, RT given breathing tx. PIVs intact. Left hand bruise noted from Hx fall. Still noted with chest pain due to fall. Marcelino cath intact, noted with clear rex colored urine. 0810: Done with breathing tx, still noted with stridor, no stridor during the treatment. ABG specimen gathered by RT, placed back on Bipap. S/E by Dr. De Jesus, Linda granddaughter at bedside. discussed with the family re: the POC. 0830: ABG resulted, Dr. De Jesus aware, will keep on Bipap. 0900: Remained on Bipap, looking comfortable on breathing at this time. Meds on hold for now, to be given soon.
[2019-04-08] MEDS ORDERED: BUMETANIDE INJ 2 MG in IV NS 0.9% 32 ML IV ONE (11:00)
[2019-04-08] MEDS: SOD FERRIC GLUC 125 MG in IV NS 0.9% 100 ML IV SCH (14:30)
[2019-04-08 15:44] LABS: BASOPHILS % (AUTO) 0.3 % (0.0-2.0); EOSINOPHILS % (AUTO) 0.1 % (0.0-6.0); HEMATOCRIT 28 % (33-45); HEMOGLOBIN 9.1 g/dL (11.5-14.8); LYMPHOCYTES # (AUTO) 0.4 /CMM (0.8-4.8); LYMPHOCYTES % (AUTO) 5.3 % (20.0-44.0); MEAN CORPUSCULAR HGB CONC 33 g/dl (31.0-36.0); MEAN CORPUSCULAR VOLUME 92 fL (82-100); MONOCYTES # (AUTO) 0.2 /CMM (0.1-1.30); MONOCYTES % (AUTO) 2.1 % (2.0-12.0); NEUTROPHILS # (AUTO) 6.8 /CMM (1.8-8.9); NEUTROPHILS % (AUTO) 92.2 % (43.0-81.0); PLATELET COUNT (AUTO) 120 /CMM (150-450); WHITE BLOOD COUNT (AUTO) 7.4 K/uL (4.3-11.0)
[2019-04-08 15:57] LABS: ALANINE AMINOTRANSFERASE 13 U/L (12-78); ALBUMIN 3.1 g/dL (3.4-5.0); ALKALINE PHOSPHATASE 60 U/L (46-116); ASPARTATE AMINOTRANSFERASE 21 U/L (15-37); BILIRUBIN,TOTAL 0.6 mg/dL (0.2-1.0); CALCIUM, SERUM 11.6 mg/dL (8.5-10.1); CARBON DIOXIDE 29 mmol/L (21-32); CHLORIDE 107 mmol/L (98-107); CREATININE 1.8 mg/dL (0.6-1.3); GLUCOSE 132 mg/dL (74-106); MAGNESIUM 2.1 mg/dL (1.8-2.4); PHOSPHORUS 3.2 mg/dL (2.5-4.9); SODIUM SERUM 144 mmol/L (136-145); TOTAL PROTEIN, SERUM 7.3 g/dL (6.4-8.2); UREA NITROGEN, BLOOD 26 mg/dL (7-18)
[2019-04-08] MEDS: DOXEPIN HCL (25 MG) 25 MG CAPSULE PO SCH (17:07)
[2019-04-08] MEDS: ATORVASTATIN 10 MG TABLET PO SCH (17:07)
[2019-04-08] MEDS: ACETAMINOPHEN 325 MG TABLET PO PRN (17:09)
--- NOTE | 2019-04-08 17:59 | NUR ---
RN NOTE Tried patient on 4LPM of O2 via NC, tolerated. Diet tolerated. Placed back Bipap on after 30 after dinner.
--- NOTE | 2019-04-08 19:30 | NUR ---
CHOCOLATE FINISHER OPERATOR RCD PT W/DX RESP FAIL; PT AWAKE/ CONFUSED NOT FOLLOWING COMMANDS. NSR ON MONITOR; ON BIPAP W/SETTINGS 15/5 RATE 14 30%. SKIN INTACT. RUTLEDGE CATH DRAINING ADEQUATE AMOUNT OF YELLOW URINE.
[2019-04-08] MEDS: MIRTAZAPINE 15 MG TABLET PO SCH (22:00)
[2019-04-08] MEDS: DONEPEZIL 5 MG TABLET PO SCH (22:00)
--- NOTE | 2019-04-08 22:00 | NUR ---
ROUNDHOUSE FIRER/FIREMAN PT TURNED AND REPOSITIONED; PROVIDED ORAL AND SKIN CARE. PT APPEARS LETHARGIC AT THIS TIME. WILL NOT ADMINISTER MEDS AND CONTINUE TO MONITOR.
--- NOTE | 2019-04-08 22:43 | NUR ---
TECHNICAL AIDE RCD A CALL FROM PTS SON HANS OVERTON [phone]. UPDATED ON PT CONDITION AND PLAN OF CARE. PER RAY DO NOT GIVE ANY INFO TO ANYONE EXCEPT HIM.
[2019-04-09] VITALS (23 sets, daily range): BP systolic 114–153; BP diastolic 51–74
--- NOTE | 2019-04-09 06:51 | NUR ---
INTERNAL AFFAIRS INVESTIGATOR PT REMAINED ON BIPAP ALL THROUGHOUT SHIFT; NO DISTRESS NOTED. CONTINUE TO MONITOR.
--- NOTE | 2019-04-09 07:00 | NUR ---
CUTTER PLASTICS ROLLS - OPENING PATIENT IS CURRENTLY ON BIPAP PATIENT IS ASLEEP BUT EASILY WOKEN WITH NAME AND TOUCH . PATIENT IS AWARE OF HER SURROUNDINGS A/O X2 . AT TIMES PATIENT IS FORGETFUL. PATIENT IS ON EXTERNAL MONITOR PATIENT IS SR IN THE 80'S .PATIENT IS ON BIPAP. WITH 14 RATE AND 30 % OX2. PATIENT IS SATURATING WELL . PATIENT HAS A RUTLEDGE AND DIAPER. PATIENT HAS RAC 2-# AND R WRIST 20 INTACT AND PATIENT NO SIGNS OF INFILTRATION OR INFECTION. BED LOCKED AND LOWEST POSITION CALL LIGHT WITH IN REACH ALL SAFETY MEASURE IMPLEMENTED PER HOSPITAL POLICY
[2019-04-09] MEDS: IPRATROPIUM NEB FS 0.5 MG/2.5 ML AMPUL.NEB NEB SCH ×4 (07:51→19:33)
[2019-04-09] MEDS: ALBUTEROL FS 2.5 MG/3 ML VIAL.NEB NEB SCH ×4 (07:51→19:33)
--- NOTE | 2019-04-09 07:56 | NUR ---
pt. is awake placed into nasal cannula @ 2 lpm o2 flow. Addendum: 04/09/19 at 0757 by NATALIA CHAVEZ RT Amended: Links added.
[2019-04-09] MEDS: AMLODIPINE BESYLATE 10 MG TABLET PO SCH (08:27)
[2019-04-09] MEDS: ASPIRIN 81 MG TAB.CHEW PO SCH (08:27)
[2019-04-09] MEDS: PANTOPRAZOLE 40 MG TABLET.DR PO SCH (08:27)
[2019-04-09] MEDS: MEMANTINE HCL 5 MG TABLET PO SCH (08:27)
[2019-04-09] MEDS: QUETIAPINE FUMARATE 25 MG TABLET PO SCH ×2 (08:28→17:10)
[2019-04-09] MEDS: TOLTERODINE 2 MG CAP.SR PO SCH (08:28)
[2019-04-09] MEDS: methylPREDNISolone SOD SUCC 40 MG/ML VIAL IV SCH ×3 (08:28→17:10)
[2019-04-09] MEDS: CINACALCET HCL 30 MG TABLET PO SCH (08:28)
[2019-04-09] MEDS: METOPROLOL TARTRATE 50 MG TABLET PO SCH ×2 (08:29→17:11)
--- NOTE | 2019-04-09 08:30 | NUR ---
LEAD LAYING AND GLUING MACHINE OPERATOR NOTES - FAMILY FAMILY AT BED SIDE. PER PATIENT REQUEST NOT TO GIVE ANY INFORMATION OUT UNLESS THEY HAVE APPROVAL FROM THE PATIENT.
[2019-04-09] MEDS: ESCITALOPRAM OXALATE (10 MG) 10 MG TABLET PO SCH (08:31)
[2019-04-09] MEDS: ENOXAPARIN SODIUM 30 MG/0.3 ML DISP.SYRIN SQ SCH (08:40)
[2019-04-09] MEDS ORDERED: BUMETANIDE INJ 8 MG in IV NS 0.9% 48 ML IV ONE (09:00)
--- NOTE | 2019-04-09 09:30 | NUR ---
THERAPEUTIC DIETITIAN - VISIT -ORDERS ORDERS 5% LIDOCANE PATCH Q24HR . 12HRS ON / 12 HRS OFF. FOR CHEST PAIN
[2019-04-09] MEDS: LIDOCAINE 5% (PATCH) 1 EA PATCH TP SCH (09:46)
[2019-04-09 11:34] LABS: ABG BASE EXCESS 4.5 mmol/L; ABG PCO2 41.5 mmHg (35.0-45.0); ABG PH 7.458 (7.350-7.450); ABG PO2 52.8 mmHg (75.0-100.0); AaDO2 97.9 mmHg; COHb 0.1 % (0.5-1.5); MetHb 0.3 % (0.0-1.5); O2Hb 87.6 % (94.0-97.0); SITE, ABG Right Brachial; VENT MODE, BG NASAL CANNULA
--- NOTE | 2019-04-09 12:01 | NUR ---
O2 flow increased from 2 lpm to 3 lpm o2 flow due to 53 pao2 Addendum: 04/09/19 at 1201 by NATALIA CHAVEZ RT Amended: Links added.
--- NOTE | 2019-04-09 13:00 | NUR ---
WRAPPER SORTER - CALLED PHARMACY FOR LAURYN
[2019-04-09] MEDS: SOD FERRIC GLUC 125 MG in IV NS 0.9% 100 ML IV SCH (15:22)
[2019-04-09] MEDS: DOXEPIN HCL (25 MG) 25 MG CAPSULE PO SCH (17:10)
[2019-04-09] MEDS: ATORVASTATIN 10 MG TABLET PO SCH (17:10)
--- NOTE | 2019-04-09 18:33 | NUR ---
MEASUREMENT ADVISOR NOTES PATIENT IS RESTING COMFORABLELY IN BED PATIENT IS EASILY WOKEN WITH NAME AND TOUCH PATIENT IS AWARE OF SURROUNDINGS A/O X3. PATIENT IS ON EXTERNAL MONITOR IN THE 60S. 3L OXG AND SATURATING WELL AT 100 %. PATIENT HAS A RUTLEDGE WITH 1700 CC OUT PUT CLEAR AND YELLOW DRAINAITE. PATIENT 20 # RAC AND RW 20# NO SIGNS OF INFILTRATION OR INFECTION. BED LOCKED AND LOWEST POSITION CALL LIGHT WITH IN REACH ALL SAFETY MEASURE IMPLEMENTED PER HOSPITAL POLICY
[2019-04-09] MEDS: DONEPEZIL 5 MG TABLET PO SCH (21:30)
[2019-04-09] MEDS: MIRTAZAPINE 15 MG TABLET PO SCH (21:30)
[2019-04-10] VITALS (15 sets, daily range): BP systolic 115–159; BP diastolic 58–83
[2019-04-10 05:14] LABS: HEMATOCRIT 30 % (33-45); HEMOGLOBIN 9.7 g/dL (11.5-14.8); LYMPHOCYTES # (AUTO) 0.8 /CMM (0.8-4.8); LYMPHOCYTES % (AUTO) 7.2 % (20.0-44.0); MEAN CORPUSCULAR HGB CONC 33 g/dl (31.0-36.0); MEAN CORPUSCULAR VOLUME 92 fL (82-100); MONOCYTES # (AUTO) 0.4 /CMM (0.1-1.30); MONOCYTES % (AUTO) 3.6 % (2.0-12.0); NEUTROPHILS # (AUTO) 9.8 /CMM (1.8-8.9); NEUTROPHILS % (AUTO) 89.2 % (43.0-81.0); PLATELET COUNT (AUTO) 150 /CMM (150-450); RED BLOOD CELL COUNT(AUTO) 3.27 MIL/uL (4.0-5.2)
[2019-04-10 05:22] LABS: ALANINE AMINOTRANSFERASE 14 U/L (12-78); ALBUMIN 2.8 g/dL (3.4-5.0); ALKALINE PHOSPHATASE 56 U/L (46-116); ASPARTATE AMINOTRANSFERASE 15 U/L (15-37); BILIRUBIN,TOTAL 0.3 mg/dL (0.2-1.0); CALCIUM, SERUM 10.1 mg/dL (8.5-10.1); CARBON DIOXIDE 32 mmol/L (21-32); CHLORIDE 104 mmol/L (98-107); CREATININE 1.7 mg/dL (0.6-1.3); GLUCOSE 201 mg/dL (74-106); MAGNESIUM 1.3 mg/dL (1.8-2.4); PHOSPHORUS 3.3 mg/dL (2.5-4.9); POTASSIUM 3.2 mmol/L (3.5-5.1); SODIUM SERUM 140 mmol/L (136-145); TOTAL PROTEIN, SERUM 6.6 g/dL (6.4-8.2); UREA NITROGEN, BLOOD 43 mg/dL (7-18)
--- NOTE | 2019-04-10 07:00 | NUR ---
HEEL SEATER PATIENT IS ASLEEP BUT EASILY WOKEN WITH NAME AND TOUCH, PATIENT IS A/O X3 AT TIMES PATIENT IS FORGETFUL . PATIENT IS ON 3L OXY AND SATURATING WELL. PATIENT IS ON EXTERNAL MONITOR 80'S. P PATIENT HAS A RUTLEDGE YELLOW AND CLEAR . PATIENT HAS RAC 20# AND RW 20 INTACT AND PATENT. NO SIGNS OF INFILTRATION AND OR INFECTION BED LOCKED AND LOWEST POSITION CALL LIGHT WITH IN REACH. ALL SAFETY MEASURE IMPLEMENTED PER HOSPITAL POLICY
[2019-04-10] MEDS: IPRATROPIUM NEB FS 0.5 MG/2.5 ML AMPUL.NEB NEB SCH ×4 (07:49→20:08)
[2019-04-10] MEDS: ALBUTEROL FS 2.5 MG/3 ML VIAL.NEB NEB SCH ×4 (07:49→20:08)
[2019-04-10] MEDS: LIDOCAINE 5% (PATCH) 1 EA PATCH TP SCH (08:04)
[2019-04-10] MEDS: ESCITALOPRAM OXALATE (10 MG) 10 MG TABLET PO SCH (08:05)
[2019-04-10] MEDS: MEMANTINE HCL 5 MG TABLET PO SCH (08:05)
[2019-04-10] MEDS: TOLTERODINE 2 MG CAP.SR PO SCH (08:05)
[2019-04-10] MEDS: PANTOPRAZOLE 40 MG TABLET.DR PO SCH (08:05)
[2019-04-10] MEDS: AMLODIPINE BESYLATE 10 MG TABLET PO SCH (08:06)
[2019-04-10] MEDS: CINACALCET HCL 30 MG TABLET PO SCH (08:06)
[2019-04-10] MEDS: Magnesium 1GM/D5W 100ML PREMIX 100 ML IV SCH ×2 (08:07→10:08)
[2019-04-10] MEDS: ASPIRIN 81 MG TAB.CHEW PO SCH (08:07)
[2019-04-10] MEDS: METOPROLOL TARTRATE 50 MG TABLET PO SCH ×2 (08:07→17:14)
[2019-04-10] MEDS: POTASSIUM CHLORIDE 20 MEQ TAB.PRT.SR PO SCH ×3 (08:07→11:42)
[2019-04-10] MEDS: methylPREDNISolone SOD SUCC 40 MG/ML VIAL IV SCH ×3 (08:07→17:13)
[2019-04-10] MEDS: QUETIAPINE FUMARATE 25 MG TABLET PO SCH ×2 (08:09→17:13)
[2019-04-10] MEDS: ENOXAPARIN SODIUM 30 MG/0.3 ML DISP.SYRIN SQ SCH (08:10)
--- NOTE | 2019-04-10 09:45 | NUR ---
STRATEGIC MARKETING MANAGER REPORT GIVEN TO JOAQUÍN PINO MS3
--- NOTE | 2019-04-10 09:50 | NUR ---
CARGO HANDLER TRANSFER PATIENT TO [facility]-2
--- NOTE | 2019-04-10 09:55 | NUR ---
Tele/inspector advanced composite from ICU Patient transfer from ICU reported by Shane RN, AO x3, able to responds all stimuli. Skin is warm to touch, intact IV site. Respiratory even, unlabored with oxygen at 3LPM via NC. Seen by DIFFERENTIAL TESTER/Zoltan. No s/s of cardiac distress, bus driver/monitor shows SR, p75. Call light within reach, will continue to monitor.
[2019-04-10] MEDS: DOXEPIN HCL (25 MG) 25 MG CAPSULE PO SCH (17:13)
[2019-04-10] MEDS: ATORVASTATIN 10 MG TABLET PO SCH (17:13)
[2019-04-10] MEDS: SOD FERRIC GLUC 125 MG in IV NS 0.9% 100 ML IV SCH (17:13)
--- NOTE | 2019-04-10 18:30 | NUR ---
Tele/RN Closing Note Patient in bed comfortably, denies pain or discomfort. Respiratory even, no SOB or resp. distress observed. Skin is warm to touch, keep clean/dry. Keep remains lower position of bed with elevated HOB. Call light within reach, will endorse to stunt person.
[2019-04-10] MEDS: MIRTAZAPINE 15 MG TABLET PO SCH (21:59)
[2019-04-10] MEDS: DONEPEZIL 5 MG TABLET PO SCH (21:59)
[2019-04-11] VITALS: BP 161/79
[2019-04-11 03:47] VITALS: BP 150/77
--- NOTE | 2019-04-11 06:07 | NUR ---
PT EXPRESSED BELIEF THROUGHOUT THE SHIFT THAT THERE WAS A MAN STANDING OUTSIDE THE WINDOW CONTINUOUSLY STATED THAT SHE SPOKE WITH THE POLICE AND THAT SHE WAS AT HOME. RESISTANT TO ATTEMPTS OF REORIENTATION. IV SITE WRAPPED WITH GAUZE DUE TO MULTIPLE ATTEMPTS BY PATIENT TO REMOVE. PT COOPERATIVE WITH HYGIENE INTERVENTION AND COMPLETE LINEN CHANGE 0545.
[2019-04-11 06:38] LABS: BASOPHILS % (AUTO) 0.1 % (0.0-2.0); HEMATOCRIT 35 % (33-45); HEMOGLOBIN 11.4 g/dL (11.5-14.8); LYMPHOCYTES # (AUTO) 0.6 /CMM (0.8-4.8); LYMPHOCYTES % (AUTO) 5.4 % (20.0-44.0); MEAN CORPUSCULAR HGB CONC 33 g/dl (31.0-36.0); MEAN CORPUSCULAR VOLUME 91 fL (82-100); MONOCYTES # (AUTO) 0.5 /CMM (0.1-1.30); MONOCYTES % (AUTO) 4.4 % (2.0-12.0); NEUTROPHILS # (AUTO) 10.3 /CMM (1.8-8.9); NEUTROPHILS % (AUTO) 90.1 % (43.0-81.0); PLATELET COUNT (AUTO) 169 /CMM (150-450); RED BLOOD CELL COUNT(AUTO) 3.81 MIL/uL (4.0-5.2); WHITE BLOOD COUNT (AUTO) 11.4 K/uL (4.3-11.0)
[2019-04-11 06:50] LABS: ALANINE AMINOTRANSFERASE 13 U/L (12-78); ALKALINE PHOSPHATASE 57 U/L (46-116); ASPARTATE AMINOTRANSFERASE 15 U/L (15-37); BILIRUBIN,TOTAL 0.6 mg/dL (0.2-1.0); CALCIUM, SERUM 10.4 mg/dL (8.5-10.1); CARBON DIOXIDE 30 mmol/L (21-32); CHLORIDE 106 mmol/L (98-107); CREATININE 1.6 mg/dL (0.6-1.3); GLUCOSE 186 mg/dL (74-106); MAGNESIUM 1.9 mg/dL (1.8-2.4); PHOSPHORUS 2.4 mg/dL (2.5-4.9); POTASSIUM 3.4 mmol/L (3.5-5.1); SODIUM SERUM 142 mmol/L (136-145); TOTAL PROTEIN, SERUM 7.2 g/dL (6.4-8.2); UREA NITROGEN, BLOOD 42 mg/dL (7-18)
[2019-04-11] MEDS: PANTOPRAZOLE 40 MG TABLET.DR PO SCH (07:30)
[2019-04-11] MEDS: IPRATROPIUM NEB FS 0.5 MG/2.5 ML AMPUL.NEB NEB SCH ×4 (07:54→19:30)
[2019-04-11] MEDS: ALBUTEROL FS 2.5 MG/3 ML VIAL.NEB NEB SCH ×4 (07:54→19:30)
--- NOTE | 2019-04-11 08:00 | NUR ---
STONE FINISHER NOTES PATIENT IN BED RESTING NO SOB OR ACUTE DISTRESS NOTED. PATIENT ALERT, ORIENTED X3. PERIPHERAL IV INTACT PATENT. BED IN LOW LOCKED POSITION WILL CONTINUE TO MONITOR.
[2019-04-11 09:10] VITALS: BP 168/74
[2019-04-11] MEDS: AMLODIPINE BESYLATE 10 MG TABLET PO SCH (09:31)
[2019-04-11] MEDS: ASPIRIN 81 MG TAB.CHEW PO SCH (09:31)
[2019-04-11] MEDS: CINACALCET HCL 30 MG TABLET PO SCH (09:31)
[2019-04-11] MEDS: QUETIAPINE FUMARATE 25 MG TABLET PO SCH ×2 (09:32→17:01)
[2019-04-11] MEDS: MEMANTINE HCL 5 MG TABLET PO SCH (09:32)
[2019-04-11] MEDS: ESCITALOPRAM OXALATE (10 MG) 10 MG TABLET PO SCH (09:32)
[2019-04-11] MEDS: methylPREDNISolone SOD SUCC 40 MG/ML VIAL IV SCH ×3 (09:32→17:02)
[2019-04-11] MEDS: METOPROLOL TARTRATE 50 MG TABLET PO SCH ×2 (09:32→17:02)
[2019-04-11] MEDS: TOLTERODINE 2 MG CAP.SR PO SCH (09:32)
[2019-04-11] MEDS: ENOXAPARIN SODIUM 30 MG/0.3 ML DISP.SYRIN SQ SCH (09:33)
[2019-04-11] MEDS: LIDOCAINE 5% (PATCH) 1 EA PATCH TP SCH (09:47)
[2019-04-11] MEDS: FUROSEMIDE 40 MG/4 ML VIAL IV SCH ×3 (10:59→18:30)
[2019-04-11] MEDS: POTASSIUM CHLORIDE 20 MEQ TAB.PRT.SR PO SCH ×3 (10:59→14:17)
[2019-04-11] MEDS: NEUTRA PHOS 1 POWD.PACKET PO SCH ×2 (11:00→18:30)
[2019-04-11] MEDS: SOD FERRIC GLUC 125 MG in IV NS 0.9% 100 ML IV SCH (15:24)
[2019-04-11 16:00] VITALS: BP 143/71
[2019-04-11] MEDS: ATORVASTATIN 10 MG TABLET PO SCH (17:01)
[2019-04-11] MEDS: DOXEPIN HCL (25 MG) 25 MG CAPSULE PO SCH (17:04)
--- NOTE | 2019-04-11 18:28 | NUR ---
MS RN NOTES PATIENT IN BED RESTING NO SOB OR ACUTE DISTRESS NOTED. ALL DUE MEDICATIONS ADMINISTERED. ALL NEEDS MET. NO ACUTE CHANGES NOTED DURING SHIFT. WILL ENDORSE CARE TO PM SHIFT.
--- NOTE | 2019-04-11 19:45 | NUR ---
MS RN NOTES RECEIVED ON BED A/O X2-3,BREATHING EASY,NO SOB,O2 IN USED AT 2LITERS TO KEEP O2 SAT ABOVE 90%.SALINE LOCK RIGHT HAND INTACT AND PATENT,RIGHT AC LEAKING.NO COMPLAINTS AT THE MOMENT.CALL LIGHT IN REACH,NEEDS ANTICIPATED.
[2019-04-11 20:00] VITALS: BP 146/71
[2019-04-11] MEDS: DONEPEZIL 5 MG TABLET PO SCH ×2 (21:32→22:12)
[2019-04-11] MEDS: MIRTAZAPINE 15 MG TABLET PO SCH ×2 (21:36→22:12)
--- NOTE | 2019-04-11 22:00 | NUR ---
MS RN NOTES PATIENT REFUSED HER REMERON AND ARICEPT,WASTED.
--- NOTE | 2019-04-12 05:00 | NUR ---
MS RN NOTES REFUSED MORNING CARE THIS TIME
[2019-04-12 06:20] LABS: HEMATOCRIT 33 % (33-45); HEMOGLOBIN 11.1 g/dL (11.5-14.8); LYMPHOCYTES # (AUTO) 0.6 /CMM (0.8-4.8); LYMPHOCYTES % (AUTO) 6.2 % (20.0-44.0); MEAN CORPUSCULAR HGB CONC 34 g/dl (31.0-36.0); MEAN CORPUSCULAR VOLUME 90 fL (82-100); MONOCYTES # (AUTO) 0.7 /CMM (0.1-1.30); MONOCYTES % (AUTO) 6.5 % (2.0-12.0); NEUTROPHILS # (AUTO) 9.1 /CMM (1.8-8.9); NEUTROPHILS % (AUTO) 87.3 % (43.0-81.0); PLATELET COUNT (AUTO) 175 /CMM (150-450); RED BLOOD CELL COUNT(AUTO) 3.68 MIL/uL (4.0-5.2); WHITE BLOOD COUNT (AUTO) 10.4 K/uL (4.3-11.0)
[2019-04-12 06:26] LABS: ALANINE AMINOTRANSFERASE 19 U/L (12-78); ALBUMIN 3.1 g/dL (3.4-5.0); ALKALINE PHOSPHATASE 57 U/L (46-116); ASPARTATE AMINOTRANSFERASE 21 U/L (15-37); BILIRUBIN,TOTAL 0.7 mg/dL (0.2-1.0); CALCIUM, SERUM 10.2 mg/dL (8.5-10.1); CARBON DIOXIDE 36 mmol/L (21-32); CHLORIDE 101 mmol/L (98-107); CREATININE 1.6 mg/dL (0.6-1.3); GLUCOSE 182 mg/dL (74-106); MAGNESIUM 1.5 mg/dL (1.8-2.4); PHOSPHORUS 3.6 mg/dL (2.5-4.9); POTASSIUM 3.3 mmol/L (3.5-5.1); SODIUM SERUM 142 mmol/L (136-145); TOTAL PROTEIN, SERUM 7.1 g/dL (6.4-8.2); UREA NITROGEN, BLOOD 46 mg/dL (7-18)
--- NOTE | 2019-04-12 06:51 | NUR ---
MS RN NOTES RESTING COMFORTABLY ON BED,WITH EPISODE OF CONFUSION,REFUSED REPOSITIONING AND MORNING CARE.RUTLEDGE CATH IN PLACE DRAINS CLEAR YELLOW OUTPUT.NO EPISODE OF SOB NOTED.IN NO ACUTE DISTRESS.POSSIBLE D/C TODAY TO HOME WITH SON.
--- NOTE | 2019-04-12 07:20 | NUR ---
MS RN OPENING NOTES RECEIVED PT IN BED,AWAKE, A/OX1-2, CONFUSED, TALKING TO HERSELF. PT TOLERATING RA, WITH NO ACUTE RESPIRATORY DISTRESS NOTED. PT DENIES ANY PAIN OR DISCOMFORT AT THE TIME. ALSO, DENIES ANY CONCERNS OR QUESTIONS AT THE MOMENT. PIV R HAND G20, FLUSHED WITH NS, INTACT AND OPERATIONAL. PT KEPT COMFORTABLE IN BED. PT'S BED IN LOWEST, LOCKED POSITION WITH SRX3. CALL LIGHT KEPT WITHIN REACH. WILL CONTINUE PLAN OF CARE.
[2019-04-12] MEDS: ALBUTEROL FS 2.5 MG/3 ML VIAL.NEB NEB SCH ×5 (07:35→19:54)
[2019-04-12] MEDS: methylPREDNISolone SOD SUCC 40 MG/ML VIAL IV SCH (08:41)
[2019-04-12] MEDS: PANTOPRAZOLE 40 MG TABLET.DR PO SCH (08:41)
[2019-04-12] MEDS: ESCITALOPRAM OXALATE (10 MG) 10 MG TABLET PO SCH (08:41)
[2019-04-12] MEDS: AMLODIPINE BESYLATE 10 MG TABLET PO SCH (08:41)
[2019-04-12] MEDS: LIDOCAINE 5% (PATCH) 1 EA PATCH TP SCH (08:42)
[2019-04-12] MEDS: QUETIAPINE FUMARATE 25 MG TABLET PO SCH ×2 (08:42→17:06)
[2019-04-12] MEDS: ASPIRIN 81 MG TAB.CHEW PO SCH (08:42)
[2019-04-12] MEDS: MEMANTINE HCL 5 MG TABLET PO SCH (08:42)
[2019-04-12] MEDS: METOPROLOL TARTRATE 50 MG TABLET PO SCH ×2 (08:42→17:05)
[2019-04-12] MEDS: Magnesium 1GM/D5W 100ML PREMIX 100 ML IV SCH ×2 (08:44→10:05)
[2019-04-12] MEDS: FUROSEMIDE 40 MG TABLET PO SCH (08:44)
[2019-04-12] MEDS: POTASSIUM CHLORIDE 20 MEQ TAB.PRT.SR PO SCH ×3 (08:44→11:13)
[2019-04-12] MEDS: TOLTERODINE 2 MG CAP.SR PO SCH (08:45)
[2019-04-12] MEDS: ENOXAPARIN SODIUM 30 MG/0.3 ML DISP.SYRIN SQ SCH (08:46)
[2019-04-12] MEDS: IPRATROPIUM NEB FS 0.5 MG/2.5 ML AMPUL.NEB NEB SCH ×5 (08:50→19:54)
[2019-04-12] MEDS: CINACALCET HCL 30 MG TABLET PO SCH (08:56)
--- NOTE | 2019-04-12 09:30 | NUR ---
MS RN NOTES SEEN AND EVALUATED BY DR FREEMAN. FAMILY PRESENT AT BEDSIDE. AWARE WITH THE PLAN OF CARE.
[2019-04-12] MEDS: IBUPROFEN 400 MG TABLET PO PRN ×2 (11:14→20:39)
[2019-04-12] MEDS: predniSONE 20 MG TABLET PO SCH (11:30)
[2019-04-12] MEDS: SOD FERRIC GLUC 125 MG in IV NS 0.9% 100 ML IV SCH (15:12)
[2019-04-12 16:00] VITALS: BP 144/70
--- NOTE | 2019-04-12 16:00 | NUR ---
MS RN NOTES PT TRANSFERRED TO ROOM 304-2. PT NOW HAVE A SITTER AT BEDSIDE.
[2019-04-12] MEDS: DOXEPIN HCL (25 MG) 25 MG CAPSULE PO SCH (17:05)
[2019-04-12] MEDS: ATORVASTATIN 10 MG TABLET PO SCH (17:06)
--- NOTE | 2019-04-12 18:27 | NUR ---
MS RN CLOSING NOTES PT REMAINS IN BED,AWAKE, A/OX1-2, CONFUSED, EPISODES OF FORGETFULNESS. PT SUPPLEMENTARY OXYGEN AT 2LPM VIA NC, WITH NO ACUTE RESPIRATORY DISTRESS NOTED. PT DENIES ANY PAIN OR DISCOMFORT AT THE TIME. PIV R HAND G20, FLUSHED WITH NS, INTACT AND OPERATIONAL. PT KEPT COMFORTABLE IN BED. ALL NEEDS AND CARE ATTENDED. PT'S BED IN LOWEST, LOCKED POSITION WITH SRX3. CALL LIGHT KEPT WITHIN REACH. WILL CONTINUE PLAN OF CARE.
--- NOTE | 2019-04-12 18:31 | NUR ---
MS RN CLOSING NOTES PT REMAINS IN BED,AWAKE, A/OX1-2, CONFUSED, EPISODES OF FORGETFULNESS. PT SUPPLEMENTARY OXYGEN AT 2LPM VIA NC, WITH NO ACUTE RESPIRATORY DISTRESS NOTED. PT DENIES ANY PAIN OR DISCOMFORT AT THE TIME. PIV R HAND G20, FLUSHED WITH NS, INTACT AND OPERATIONAL. PT KEPT COMFORTABLE IN BED. ALL NEEDS AND CARE ATTENDED. PT'S BED IN LOWEST, LOCKED POSITION WITH SRX3. CALL LIGHT KEPT WITHIN REACH. WILL ENDORSE TO INCOMING NIGHT NURSE FOR VIKTOR.
--- NOTE | 2019-04-12 19:40 | NUR ---
MS RN NOTES RECEIVED ON BED A/O X1-2,CONFUSED,.SPEAK ESTONIAN,RUTLEDGE CATH IN PLACE DRAINING CLEAR YELLOW OUTPUT.FALL,RISK,,BED ON LOWEST POSITION AND LOCK,SITTER AT BEDSIDE.SALINE LOCK RIGHT HAND INTACT AND PATENT.WILL CONTINUE TO MONITOR STATUS.
--- NOTE | 2019-04-12 20:00 | NUR ---
MS RN NOTES REFUSED VITAL SIGNS AND PATIENT CARE.C/O MUSCLE PAIN ON THE CHEST,OFFERED MOTRIN 400MG PO BUT REFUSED.
[2019-04-13] MEDS: IBUPROFEN 400 MG TABLET PO PRN (04:33)
--- NOTE | 2019-04-13 04:33 | NUR ---
MS RN NOTES PAIN MANAGEMENT C/O MID STERNUM PAIN,MAIRA.SHE'S WILLING TO TAKE HER MOTRIN 400MG PO ORDERED FOR PAIN,TAKEN.
--- NOTE | 2019-04-13 04:41 | NUR ---
MS RN NOTES C/O ACID REFLUX,MEDICATED WITH MAALOX 30ML PO ORDERED.
[2019-04-13] MEDS: METOPROLOL TARTRATE 50 MG TABLET PO SCH ×2 (05:02→10:09)
--- NOTE | 2019-04-13 05:10 | NUR ---
MS RN NOTES BP-172/82,PULSE-77,LOPRESSOR 50MG 1 TAB PO GIVEN EARLY FOR 0900 DOSE.WILL MONITOR.SITTER AT BEDSIDE.
--- NOTE | 2019-04-13 06:13 | NUR ---
MS RN NOTES ON BED,MORE CALM.PAIN MANAGEMENT EFFECTIVE,LATEST BP-131/87,PULSE-81.TOLERATED MORNING CARE.REPOSITION.IN NO ACTE DISTRESS.FOR D/C PLANNING WITH SON.
[2019-04-13 07:13] LABS: BASOPHILS % (AUTO) 0.1 % (0.0-2.0); HEMATOCRIT 33 % (33-45); LYMPHOCYTES % (AUTO) 6.3 % (20.0-44.0); MEAN CORPUSCULAR HGB CONC 34 g/dl (31.0-36.0); MEAN CORPUSCULAR VOLUME 91 fL (82-100); MONOCYTES # (AUTO) 1.6 /CMM (0.1-1.30); MONOCYTES % (AUTO) 10.1 % (2.0-12.0); NEUTROPHILS # (AUTO) 12.9 /CMM (1.8-8.9); NEUTROPHILS % (AUTO) 83.5 % (43.0-81.0); PLATELET COUNT (AUTO) 163 /CMM (150-450); WHITE BLOOD COUNT (AUTO) 15.5 K/uL (4.3-11.0)
--- NOTE | 2019-04-13 07:20 | NUR ---
ms rn received on bed, awake,alert, oriented x3,not in any form of distress, respirations even and unlabored,no sob noted, lungs are clear abcomen soft positive bowel sounds, denies pain at this time,a ll needs attended.
[2019-04-13 07:33] LABS: ALANINE AMINOTRANSFERASE 17 U/L (12-78); ALKALINE PHOSPHATASE 54 U/L (46-116); ASPARTATE AMINOTRANSFERASE 18 U/L (15-37); BILIRUBIN,TOTAL 0.7 mg/dL (0.2-1.0); CALCIUM, SERUM 10.1 mg/dL (8.5-10.1); CARBON DIOXIDE 35 mmol/L (21-32); CHLORIDE 102 mmol/L (98-107); CREATININE 1.6 mg/dL (0.6-1.3); GLUCOSE 139 mg/dL (74-106); PHOSPHORUS 3.2 mg/dL (2.5-4.9); POTASSIUM 3.7 mmol/L (3.5-5.1); SODIUM SERUM 140 mmol/L (136-145); TOTAL PROTEIN, SERUM 6.6 g/dL (6.4-8.2); UREA NITROGEN, BLOOD 46 mg/dL (7-18)
[2019-04-13] MEDS: ALBUTEROL FS 2.5 MG/3 ML VIAL.NEB NEB SCH ×2 (07:38→11:30)
[2019-04-13] MEDS: IPRATROPIUM NEB FS 0.5 MG/2.5 ML AMPUL.NEB NEB SCH ×2 (07:38→11:30)
[2019-04-13] MEDS: CINACALCET HCL 30 MG TABLET PO SCH (09:00)
[2019-04-13] MEDS: MEMANTINE HCL 5 MG TABLET PO SCH (09:00)
[2019-04-13] MEDS: ESCITALOPRAM OXALATE (10 MG) 10 MG TABLET PO SCH (09:00)
[2019-04-13] MEDS: QUETIAPINE FUMARATE 25 MG TABLET PO SCH (09:00)
--- NOTE | 2019-04-13 09:00 | NUR ---
ms long breakfast served,tolerated well,.
--- NOTE | 2019-04-13 09:30 | NUR ---
ms ethan was seen by navya desai/ orders made and carried out.
[2019-04-13] MEDS: LIDOCAINE 5% (PATCH) 1 EA PATCH TP SCH (10:08)
[2019-04-13] MEDS: FUROSEMIDE 40 MG TABLET PO SCH (10:09)
[2019-04-13] MEDS: predniSONE 20 MG TABLET PO SCH (10:09)
[2019-04-13 10:10] VITALS: BP 158/75
[2019-04-13] MEDS: AMLODIPINE BESYLATE 10 MG TABLET PO SCH (10:10)
[2019-04-13] MEDS: ASPIRIN 81 MG TAB.CHEW PO SCH (10:10)
[2019-04-13] MEDS: TOLTERODINE 2 MG CAP.SR PO SCH (10:10)
[2019-04-13] MEDS: PANTOPRAZOLE 40 MG TABLET.DR PO SCH (10:13)
[2019-04-13 10:18] LABS: BAND % (MANUAL) 2 % (0.0-5.0); LYMPHOCYTES % (MANUAL) 5 % (16-48); MONOCYTES % (MANUAL) 12 % (0-11.0); NEUTROPHILS % (MANUAL) 81 (42-76)
[2019-04-13] MEDS: ENOXAPARIN SODIUM 30 MG/0.3 ML DISP.SYRIN SQ SCH (10:34)
--- NOTE | 2019-04-13 11:00 | NUR ---
ms rn was seen by son w/ order to bring her with him.
--- NOTE | 2019-04-13 11:50 | NUR ---
cydney rn was seen by dr. larissa avelar/ orders made and carried out.
--- NOTE | 2019-04-13 12:30 | NUR ---
ms rn son wants mom to bring home, texted dr. larissa avelar/ order to ama..
--- NOTE | 2019-04-13 13:00 | NUR ---
ms rn ready to go home w/ instructions, patient refused to take picture of her left hand bruise, w/ intact skin.
== END 2019-04-13 12:45 | disposition left against medical advice (07) | DRG 280 ==
LOC: ER 14:57 → TELE 19:24 → MED 04-07 11:19 → ICU 04-07 12:55 → TELE 04-10 09:54 → MED 04-11 11:55
PROVIDERS: ADMIT Nurse Practitioner Acute Care
PROC: 5A09357 Assistance with Respiratory Ventilation, Less than 24 Consecutive Hours, Continuous Positive Airway Pressure (ICD-10-PCS; principal; 2019-04-07)
PROC: 5A09357 Assistance with Respiratory Ventilation, Less than 24 Consecutive Hours, Continuous Positive Airway Pressure (ICD-10-PCS; 2019-04-08)
DX: I13.0 Hypertensive heart and chronic kidney disease with heart failure and stage 1 through stage 4 chronic kidney disease, or unspecified chronic kidney disease (principal); I21.A1 Myocardial infarction type 2; I50.33 Acute on chronic diastolic (congestive) heart failure; N17.0 Acute kidney failure with tubular necrosis; J96.01 Acute respiratory failure with hypoxia; J96.02 Acute respiratory failure with hypercapnia; E44.0 Moderate protein-calorie malnutrition; E66.2 Morbid (severe) obesity with alveolar hypoventilation; J98.11 Atelectasis; N18.3 Chronic kidney disease, stage 3 (moderate); E87.6 Hypokalemia; E83.42 Hypomagnesemia; F03.90 Unspecified dementia, unspecified severity, without behavioral disturbance, psychotic disturbance, mood disturbance, and anxiety; I27.20 Pulmonary hypertension, unspecified; J31.0 Chronic rhinitis; J44.9 Chronic obstructive pulmonary disease, unspecified; F32.9 Major depressive disorder, single episode, unspecified; K21.9 Gastro-esophageal reflux disease without esophagitis; D63.8 Anemia in other chronic diseases classified elsewhere; E83.9 Disorder of mineral metabolism, unspecified; Z68.31 Body mass index [BMI] 31.0-31.9, adult; M25.511 Pain in right shoulder; M19.90 Unspecified osteoarthritis, unspecified site; R07.89 Other chest pain; E88.09 Other disorders of plasma-protein metabolism, not elsewhere classified; M62.50 Muscle wasting and atrophy, not elsewhere classified, unspecified site; Z91.81 History of falling; Z79.82 Long term (current) use of aspirin; Z99.81 Dependence on supplemental oxygen
CPT/HCPCS: 36415; 36600; 71045-TC; 71100-TC; 73030-TC; 80048-TC; 80053-TC; 80061-TC; 80076-TC; 81000-TC; 82728-TC; 82803-TC; 83540-TC; 83735-TC; 83880; 84100-TC; 84484-TC; 85025-TC; 85730-TC; 87081-TC; 93307-TC; 94799-TC; 97116-TC; 97530-TC; A4216; G0378; J1650; J1940; J2270; J2405; J2916; J2920; J3475; J3490; J7030; J7050